=== PATIENT | female | born 1985 | race Caucasian/White ===

== ENCOUNTER 2024-02-14 12:59 | Inpatient (IN) | payer OTHER ==
[~2024-02-14] VITALS: Ht 165.1 cm; Wt 85.7 kg
[2024-02-14 13:10] VITALS: BP 120/71; PULSE 87; RESP 16; TEMP 97.5; O2SAT 98
[2024-02-14 13:45] LABS: BASOPHILS % (AUTO) 0.3 % (0.0-2.0); EOSINOPHILS # (AUTO) 0.2 K/uL (0-0.4); EOSINOPHILS % (AUTO) 1.2 % (0.0-4.0); HEMATOCRIT 37.3 % (36-48); LYMPHOCYTES # (AUTO) 1.9 K/uL (2.5-16.5); LYMPHOCYTES % (AUTO) 14.9 % (20.5-51.1); MEAN CORPUSCULAR HEMOGLOBIN 29 pg (27-31); MEAN CORPUSCULAR HGB CONC 35 g/dL (33-37); MEAN CORPUSCULAR VOLUME 84.7 fL (80-94); MONOCYTES # (AUTO) 0.7 K/uL (0.8-1.0); MONOCYTES % (AUTO) 5.6 % (1.7-9.3); NEUTROPHILS # (AUTO) 9.8 K/uL (1.8-7.7); PLATELET COUNT (AUTO) 259 K/uL (140-450); RED BLOOD CELL COUNT(AUTO) 4.41 MIL/uL (4.20-5.40); RED CELL DISTRIBUTION WIDTH 13.3 % (11.6-13.7); WHITE BLOOD COUNT (AUTO) 12.6 K/uL (4.8-10.8)
[2024-02-14] MEDS: NACL 0.9% 1,000 ML IV ONE (13:53)
[2024-02-14] MEDS: ONDANSETRON 4 MG/2 ML VIAL IVP ONE (13:54)
[2024-02-14] MEDS: MORPHINE SULFATE 4 MG/ML SYR IVP ONE (13:54)
[2024-02-14 13:58] LABS: ANION GAP 12.2 (8-16); CALCIUM 8.5 mg/dL (8.5-10.1); CARBON DIOXIDE 24.2 mmol/L (21-32); CREATININE 0.8 mg/dL (0.6-1.3); POTASSIUM 3.4 mmol/L (3.5-5.1)
[2024-02-14 14:04] LABS: ALBUMIN 3.6 g/dL (3.4-5.0); BILIRUBIN,DIRECT 0.1 mg/dL (0.0-0.3); TOTAL BILIRUBIN 0.7 mg/dL (0.0-1.0); TOTAL PROTEIN, SERUM 7.9 g/dL (6.4-8.2)
[2024-02-14 15:20] LABS: APPEARANCE,URINE CLEAR (CLEAR); BILIRUBIN,URINE NEGATIVE (NEGATIVE); BLOOD, URINE 3+ (NEGATIVE); COLOR,URINE YELLOW (YELLOW); LEUKOCYTE ESTERASE ,URINE NEGATIVE (NEGATIVE); NITRITE, URINE NEGATIVE (NEGATIVE); PROTEIN,URINE NEGATIVE (NEGATIVE); UGLUCOSE NEGATIVE (NEGATIVE); UROBILINOGEN,URINE 0.2 EU/dL (0.2 - 1)
[2024-02-14 15:46] LABS: BACTERIA,URINE FEW /HPF (None Seen); MUCUS,URINE None Seen /LPF (None Seen); RBC,URINE 11-20 (MOD) /HPF (0-5); SQUAMOUS EPITHELIAL CELL,UR 0-3 (FEW) /LPF (0-3 (FEW)); WBC,URINE 0-5 /HPF (0-5); YEAST,URINE None Seen /HPF (None Seen)
[2024-02-14 15:47] LABS: TRICHOMONAS,URINE None Seen /HPF (None Seen); WHITE BLOOD CELL CASTS,URINE None Seen /LPF (None Seen)
[2024-02-14] MEDS ORDERED: cefTRIAXone 1,000 MG VIAL ONE (16:28)
[2024-02-14] MEDS: metroNIDAZOLE 500 MG/NS PREMIX 100 ML IV ONE (16:34)
[2024-02-14] MEDS ORDERED: MAG SULF 2000 MG/WATER PREMIX 50 ML IV PRN (18:40)
[2024-02-14] MEDS ORDERED: LORazepam 1 MG TAB PO PRN (18:40)
[2024-02-14] MEDS ORDERED: KCL 20 MEQ IN 100 mL PREMIX 200 ML IV PRN (18:40)
[2024-02-14] MEDS ORDERED: ONDANSETRON 4 MG/2 ML VIAL IVP PRN (18:40)
[2024-02-14] MEDS ORDERED: ZOLPIDEM 5 MG TAB PO PRN (18:40)
[2024-02-14] MEDS: DEXT 5% /NACL 0.9% 1,000 ML IV SCH (18:54)
[2024-02-14] MEDS: MORPHINE SULFATE 4 MG/ML SYR IVP PRN (18:55)
[2024-02-14] MEDS: metroNIDAZOLE 500 MG/NS PREMIX 100 ML IV SCH (21:48)
[2024-02-14 23:10] VITALS: PULSE 71
[2024-02-14 23:15] VITALS: PULSE 71; RESP 18; O2SAT 98
[2024-02-14] MEDS: POTASSIUM CHLORIDE 10 MEQ TABER PO PRN (23:26)
[2024-02-15] VITALS (7 sets, daily range): BP systolic 104–121; BP diastolic 53–79; PULSE 70–98; RESP 16–18; TEMP 97.6–98.6; O2SAT 95–99
[2024-02-15] MEDS: ACETAMINOPHEN 325 MG TAB PO PRN (03:52)
[2024-02-15 05:18] LABS: BASOPHILS % (AUTO) 0.5 % (0.0-2.0); EOSINOPHILS # (AUTO) 0.1 K/uL (0-0.4); HEMATOCRIT 34.7 % (36-48); HEMOGLOBIN 11.7 g/dL (12.0-16.0); LYMPHOCYTES # (AUTO) 1.4 K/uL (2.5-16.5); LYMPHOCYTES % (AUTO) 15.9 % (20.5-51.1); MEAN CORPUSCULAR HEMOGLOBIN 29 pg (27-31); MEAN CORPUSCULAR HGB CONC 34 g/dL (33-37); MEAN CORPUSCULAR VOLUME 85.3 fL (80-94); MONOCYTES # (AUTO) 0.5 K/uL (0.8-1.0); MONOCYTES % (AUTO) 5.7 % (1.7-9.3); NEUTROPHILS # (AUTO) 6.6 K/uL (1.8-7.7); NEUTROPHILS % (AUTO) 76.9 % (42.2-75.2); PLATELET COUNT (AUTO) 230 K/uL (140-450); RED BLOOD CELL COUNT(AUTO) 4.06 MIL/uL (4.20-5.40); RED CELL DISTRIBUTION WIDTH 13.2 % (11.6-13.7); WHITE BLOOD COUNT (AUTO) 8.6 K/uL (4.8-10.8)
[2024-02-15 05:33] LABS: INR 1.03 (0.8-1.2); PARTIAL THROMBOPLASTIN TIME 24.9 secs (22-35.6); PROTHROMBIN TIME 10.8 secs (10.8-13.4)
[2024-02-15 05:51] LABS: ALBUMIN 3.1 g/dL (3.4-5.0); ANION GAP 12.8 (8-16); CREATININE 0.7 mg/dL (0.6-1.3); POTASSIUM 3.8 mmol/L (3.5-5.1); TOTAL BILIRUBIN 0.5 mg/dL (0.0-1.0); TOTAL PROTEIN, SERUM 7.1 g/dL (6.4-8.2)
[2024-02-15] MEDS: BUPIVACAINE-MPF 0.25% 30 ML VIAL INJ ONE (07:19)
[2024-02-15] MEDS: HYDROmorphone PFS 2 MG/ML SYR ONE ×2 (07:33→09:08)
[2024-02-15] MEDS ORDERED: SEVOFLURANE 250 ML BTL INH ONE (07:40)
[2024-02-15] MEDS ORDERED: ROCURONIUM 50 MG/5 ML VIAL IV ONE (07:40)
[2024-02-15] MEDS: LIDOCAINE 2% 100 MG/5 ML SYR IVP ONE (07:41)
[2024-02-15] MEDS: DEXAMETHASONE 4 MG/ML VIAL ONE (07:41)
[2024-02-15] MEDS: ONDANSETRON 4 MG/2 ML VIAL ONE (07:41)
[2024-02-15] MEDS: PROPOFOL 200 MG/20 ML VIAL IV ONE (07:41)
[2024-02-15] MEDS: ceFAZolin 1,000 MG VIAL ONE ×2 (07:49)
[2024-02-15] MEDS: GLYCOPYRROLATE 0.2 MG/ML VIAL ONE (08:30)
[2024-02-15] MEDS: ePHEDrine 50 MG/ML VIAL ONE (08:30)
[2024-02-15] MEDS: NEOSTIGMINE 1:1000 10 MG/10 ML VIAL ONE (08:30)
[2024-02-15] MEDS ORDERED: ONDANSETRON 4 MG/2 ML VIAL IVP PRN (08:55)
[2024-02-15] MEDS: HYDROmorphone 1 MG/ML AMP IVP PRN (09:05)
[2024-02-15] MEDS: HYDROcodone/APAP 5/325 MG 1 TAB TAB PO PRN (21:33)
[2024-02-16 04:00] VITALS: BP 95/48; PULSE 77; RESP 16; TEMP 97; O2SAT 98
[2024-02-16 06:29] LABS: BASOPHILS % (AUTO) 0.4 % (0.0-2.0); EOSINOPHILS # (AUTO) 0.1 K/uL (0-0.4); EOSINOPHILS % (AUTO) 0.6 % (0.0-4.0); HEMATOCRIT 33.1 % (36-48); HEMOGLOBIN 11.5 g/dL (12.0-16.0); LYMPHOCYTES # (AUTO) 1.9 K/uL (2.5-16.5); LYMPHOCYTES % (AUTO) 22.7 % (20.5-51.1); MEAN CORPUSCULAR HEMOGLOBIN 30 pg (27-31); MEAN CORPUSCULAR HGB CONC 35 g/dL (33-37); MEAN CORPUSCULAR VOLUME 85.5 fL (80-94); MONOCYTES # (AUTO) 0.6 K/uL (0.8-1.0); MONOCYTES % (AUTO) 6.6 % (1.7-9.3); NEUTROPHILS # (AUTO) 5.9 K/uL (1.8-7.7); NEUTROPHILS % (AUTO) 69.7 % (42.2-75.2); PLATELET COUNT (AUTO) 262 K/uL (140-450); RED BLOOD CELL COUNT(AUTO) 3.87 MIL/uL (4.20-5.40); RED CELL DISTRIBUTION WIDTH 13.7 % (11.6-13.7); WHITE BLOOD COUNT (AUTO) 8.5 K/uL (4.8-10.8)
[2024-02-16 06:43] LABS: CALCIUM 8.1 mg/dL (8.5-10.1); CARBON DIOXIDE 23.5 mmol/L (21-32); CREATININE 0.7 mg/dL (0.6-1.3); POTASSIUM 3.5 mmol/L (3.5-5.1); TOTAL BILIRUBIN 0.4 mg/dL (0.0-1.0); TOTAL PROTEIN, SERUM 6.9 g/dL (6.4-8.2)
[2024-02-16 08:00] VITALS: BP 116/74; PULSE 97; RESP 18; TEMP 97.6; O2SAT 95
[2024-02-16 08:07] VITALS: PULSE 99
[2024-02-16 15:48] VITALS: BP 128/78; PULSE 68; RESP 20; TEMP 97.1
== END 2024-02-16 16:20 | disposition home or self-care (01) | DRG 234 ==
LOC: MED 12:59 → MMU 18:40 → OBSVTOIN 18:40 → MTU 20:26
PROVIDERS: ADMIT Internal Medicine; ATTEND Internal Medicine
PROC: 0DTJ4ZZ Resection of Appendix, Percutaneous Endoscopic Approach (ICD-10-PCS; principal; 2024-02-15 07:30)
DX: K35.80 Unspecified acute appendicitis (principal); R65.10 Systemic inflammatory response syndrome (SIRS) of non-infectious origin without acute organ dysfunction; E87.6 Hypokalemia; Z79.899 Other long term (current) drug therapy
CPT/HCPCS: 36415; 80048; 80053; 80076; 81001; 83690; 85025; 85610; 85730; 87040; 87081; 87086; 87186; 88304; 93005; 96360; 99291; J0330; J0690; J0696; J1100; J1170; J2001; J2270; J2405; J2704; J2710; J3490; J7060; Q9967

== ENCOUNTER 2024-02-24 11:46 | Emergency (ER) | payer OTHER ==
[~2024-02-24] VITALS: Ht 172.7 cm; Wt 87.1 kg
[2024-02-24 11:50] VITALS: BP 122/50; PULSE 75; RESP 18; TEMP 97.5; O2SAT 99
[2024-02-24] MEDS: PROCHLORPERAZINE 10 MG/2 ML VIAL IM ONE (13:10)
[2024-02-24] MEDS: KETOROLAC 30 MG/ML VIAL IM ONE (13:11)
[2024-02-24 14:03] LABS: APPEARANCE,URINE CLEAR (CLEAR); BILIRUBIN,URINE NEGATIVE (NEGATIVE); BLOOD, URINE NEGATIVE (NEGATIVE); COLOR,URINE YELLOW (YELLOW); LEUKOCYTE ESTERASE ,URINE NEGATIVE (NEGATIVE); NITRITE, URINE NEGATIVE (NEGATIVE); PROTEIN,URINE NEGATIVE (NEGATIVE); UGLUCOSE NEGATIVE (NEGATIVE); UROBILINOGEN,URINE 0.2 EU/dL (0.2 - 1)
[2024-02-24] MEDS ORDERED: ACET-9496 PO (14:57)
[2024-02-24 15:10] VITALS: BP 123/62; PULSE 74; RESP 18; TEMP 96.7; O2SAT 98
== END 2024-02-24 15:10 | disposition home or self-care (01) ==
LOC: MED 11:46
DX: G43.909 Migraine, unspecified, not intractable, without status migrainosus (principal); H53.149 Visual discomfort, unspecified; Z48.01 Encounter for change or removal of surgical wound dressing
CPT/HCPCS: 81003; 81025; 96372; 99284; J0780; J1885; Q0163